=== PATIENT | male | born 1930 | race Caucasian/White ===

== ENCOUNTER 2021-04-19 17:52 | Emergency (ER) | payer MEDICARE, BC ==
[2021-04-19] MEDS ORDERED: Sodium Chloride 0.9% 10 ML Syringe FLUSH PRN (18:05)
[2021-04-19] MEDS ORDERED: Diltiazem 25 MG/5 ML SDV IVPUSH ONE ×2 (18:23→19:30)
--- NOTE | 2021-04-19 19:08 | EDM.PDOC ---
ED HPI GENERAL MEDICAL PROBLEM - General Chief Complaint: Fever Stated Complaint: FEVER Time Seen by Provider: 04/19/21 19:03 Source of Information: Reports: Patient, Family History Limitations: Reports: Altered Mental Status - History of Present Illness INITIAL COMMENTS - FREE TEXT/NARRATIVE: Ed is a 89 yo female brought by care givers due to lethargy,fever and general malaise. He reportedly had a temp of 104 at home. According to the caregiver,he has not been himself since the COVID booster in Mid February,but really got worse tonight. He complains of no chest pain or SOB,though he has a cough. Ed has ah/o DM2,HTN,MDD,Fibromyalgia,RA,Chronic Pancreatitis Headache Pain Score (Numeric/FACES): 5 - Related Data Allergies Allergy/AdvReac Type Severity Reaction Status Date / Time No Known Allergies Allergy Verified 03/07/13 10:27 Home Meds: Home Meds Amylase/Lipase/Protease [Pancrelipase DR 5,000 Units] 1 cap PO TID 03/15/15 [History] Cholecalciferol (Vitamin D3) [Vitamin D3] 2,000 unit PO DAILY 03/15/15 [History] Dextroamphetamine [Dexedrine] 1 cap PO DAILY PRN 03/15/15 [History] Docusate Sodium [Stool Softener] 100 mg PO DAILY 03/15/15 [History] Escitalopram [Lexapro] 20 mg PO DAILY 03/15/15 [History] Folic Acid 1 tab PO DAILY 03/15/15 [History] Gabapentin 600 mg PO QID 03/15/15 [History] Gemfibrozil 600 mg PO BID 03/15/15 [History] Hydroxychloroquine [Plaquenil] 200 mg PO BID 03/15/15 [History] Insulin Aspart [NovoLOG] See Protocol SUBCUT QIDACANDBED 03/15/15 [History] Insulin Glarg,Human.Rec.Analog [Lantus Solostar] 40 unit SUBCUT BEDTIME 03/15/15 [History] Methotrexate Sodium [Methotrexate] 6 tab PO WEEKLY 03/15/15 [History] Omeprazole [Prilosec] 20 mg PO QAM 03/15/15 [History] carvediloL [Coreg] 3.125 tab PO BID 03/15/15 [History] hydrALAZINE [Apresoline] 25 mg PO BID 03/15/15 [History] Acetaminophen/oxyCODONE [Percocet 325-5 MG] 1 tab PO Q4H PRN #40 tablet 03/20/15 [Rx] Past Medical History Other Cardiovascular History: unverified stroke but unsure. 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 Other Musculoskeletal Surgeries/Procedures:: right full and left is partial Social & Family History - Family History Family Medical History: Unobtainable - Tobacco Use Tobacco Use Status *Q: Never Tobacco User - Caffeine Use Caffeine Use: Reports: None - Recreational Drug Use Recreational Drug Use: No - Living Situation & Occupation Living situation: Reports: , with Family Occupation: Retired ED ROS GENERAL - Review of Systems Review Of Systems: Comprehensive ROS is negative, except as noted in HPI. ED EXAM, SEPSIS - Physical Exam Exam: See Below Exam Limited By: No Limitations General Appearance: Lethargic Ears: Normal External Exam Nose: Normal Inspection Throat/Mouth: Normal Inspection Head: Atraumatic Neck: Normal Inspection Respiratory/Chest: No Respiratory Distress, Lungs Clear Cardiovascular: Normal Peripheral Pulses, Regular Rate, Rhythm GI/Abdominal Exam: Normal Bowel Sounds, Soft (Male) Exam: No Hernia Back: Normal Inspection, Full Range of Motion Extremities: Pedal Edema Neurological: Oriented, CN II-XII Intact Psychiatric: Normal Affect, Normal Mood Lymphatic: Bilateral: No Adenopathy #1 Interpretation EKG Date: 04/19/21 Rhythm: A-Fib Benjamin: Normal P-Wave: Absent QRS: Normal ST-T: Normal Comparison: Change From Previous EKG Course - Vital Signs Last Recorded V/S: Last Vital Signs Temp 99.4 F 04/19/21 19:47 Pulse 91 04/19/21 20:37 Resp 18 04/19/21 20:37 BP 107/55 L 04/19/21 20:37 Pulse Ox 95 04/19/21 20:37 - Orders/Labs/Meds Orders: Active Orders 24 hr Category Date Time Status CULTURE BLOOD [BC] Urgent Lab 04/19/21 18:17 Results Labs: Laboratory Tests 04/19/21 04/19/21 04/19/21 Range/Units 18:05 18:17 18:17 WBC 15.7 H (3.2-10.1) x10-3/uL RBC 5.03 (3.90-5.90) x10(6)uL Hgb 14.8 (12.9-17.7) g/dL Hct 45.0 (38.3-50.1) % MCV 89.5 (80.8-98.7) fL MCH 29.5 (27.0-33.3) pg MCHC 33.0 (28.7-35.3) g/dL RDW 14.5 (12.4-15.0) % Plt Count 255 (117-477) x10(3)uL MPV 7.2 (6.7-11.0) fL Add Manual Diff Yes Neutrophils % (Manual) 86 H (46-82) % Band Neutrophils % 2 (0-6) % Lymphocytes % (Manual) 4 L (13-37) % Monocytes % (Manual) 8 (4-12) % Sodium 137 (135-145) mmol/L Potassium 3.8 (3.5-5.3) mmol/L Chloride 100 D (100-110) mmol/L Carbon Dioxide 24 (21-32) mmol/L BUN 24 H (7-18) mg/dL Creatinine 1.1 (0.70-1.30) mg/dL Est Cr Clr Drug Dosing 48.49 mL/min Estimated GFR (MDRD) > 60 (>60) BUN/Creatinine Ratio 21.8 H (9-20) Glucose 133 H (80-116) mg/dL Calcium 9.3 (8.6-10.2) mg/dL Total Bilirubin 0.9 (0.1-1.3) mg/dL AST 14 D (5-25) IU/L ALT 10 L (12-36) U/L Alkaline Phosphatase 73 (56-112) IU/L Troponin I (4.0-60.3) pg/mL NT-Pro-B Natriuret Pep (<=450) pg/mL Total Protein 7.6 (6.0-8.0) g/dL Albumin 3.5 (2.9-4.5) g/dL Globulin 4.1 g/dL Albumin/Globulin Ratio 0.9 Urine Color (YELLOW) Urine Appearance (CLEAR) Urine pH (5.0-6.5) Ur Specific [place] (1.010-1.025) Urine Protein (NEGATIVE) mg/dL Urine Glucose (UA) (NORMAL) mg/dL Urine Ketones (NEGATIVE) mg/dL Urine Occult Blood (NEGATIVE) Urine Nitrite (NEGATIVE) Urine Bilirubin (NEGATIVE) Urine Urobilinogen (NEGATIVE) mg/dL Ur Leukocyte Esterase (NEGATIVE) Urine RBC (0-5) Urine WBC (0-5) Ur Squamous Epith Cells (NS,R,O) Urine Bacteria (NS) SARS-CoV-2 RNA (CHETNA) Negative (NEGATIVE) 04/19/21 04/19/21 04/19/21 Range/Units 18:17 18:17 20:00 WBC (3.2-10.1) x10-3/uL RBC (3.90-5.90) x10(6)uL Hgb (12.9-17.7) g/dL Hct (38.3-50.1) % MCV (80.8-98.7) fL MCH (27.0-33.3) pg MCHC (28.7-35.3) g/dL RDW (12.4-15.0) % Plt Count (117-477) x10(3)uL MPV (6.7-11.0) fL Add Manual Diff Neutrophils % (Manual) (46-82) % Band Neutrophils % (0-6) % Lymphocytes % (Manual) (13-37) % Monocytes % (Manual) (4-12) % Sodium (135-145) mmol/L Potassium (3.5-5.3) mmol/L Chloride (100-110) mmol/L Carbon Dioxide (21-32) mmol/L BUN (7-18) mg/dL Creatinine (0.70-1.30) mg/dL Est Cr Clr Drug Dosing mL/min Estimated GFR (MDRD) (>60) BUN/Creatinine Ratio (9-20) Glucose (80-116) mg/dL Calcium (8.6-10.2) mg/dL Total Bilirubin (0.1-1.3) mg/dL AST (5-25) IU/L ALT (12-36) U/L Alkaline Phosphatase (56-112) IU/L Troponin I 29.6 (4.0-60.3) pg/mL NT-Pro-B Natriuret Pep 2349 H* (<=450) pg/mL Total Protein (6.0-8.0) g/dL Albumin (2.9-4.5) g/dL Globulin g/dL Albumin/Globulin Ratio Urine Color Yellow (YELLOW) Urine Appearance Clear (CLEAR) Urine pH 5.0 (5.0-6.5) Ur Specific [place] 1.020 (1.010-1.025) Urine Protein Negative (NEGATIVE) mg/dL Urine Glucose (UA) >1000 H (NORMAL) mg/dL Urine Ketones 50 H (NEGATIVE) mg/dL Urine Occult Blood Moderate H (NEGATIVE) Urine Nitrite Negative (NEGATIVE) Urine Bilirubin Negative (NEGATIVE) Urine Urobilinogen Normal (NEGATIVE) mg/dL Ur Leukocyte Esterase Negative (NEGATIVE) Urine RBC 0-5 (0-5) Urine WBC 0-5 (0-5) Ur Squamous Epith Cells Few H (NS,R,O) Urine Bacteria Few H (NS) SARS-CoV-2 RNA (CHETNA) (NEGATIVE) Meds: Medications Discontinued Medications Generic Name Dose Route Start Last Admin Trade Name Rocío PRN Reason Stop Dose Admin Ceftriaxone Sodium 2 gm 04/19/21 19:32 04/19/21 19:46 Ceftriaxone 2 Gm Vial IVPUSH 04/19/21 19:33 2 gm ONETIME ONE Administration Digoxin 250 mcg 04/19/21 19:11 04/19/21 19:15 Digoxin 500 Mcg/2 Ml Amp IVPUSH 04/19/21 19:12 250 mcg ONETIME ONE Administration Diltiazem HCl 25 mg 04/19/21 18:23 04/19/21 18:26 Diltiazem 25 Mg/5 Ml Sdv IVPUSH 04/19/21 18:24 25 mg ONETIME ONE Administration Diltiazem HCl 10 mg 04/19/21 19:30 04/19/21 19:45 Diltiazem 25 Mg/5 Ml Sdv IVPUSH 04/19/21 19:31 10 mg ONETIME ONE Administration Sodium Chloride 1,000 mls @ 250 mls/hr 04/19/21 19:30 Normal Saline IV ASDIRECTED JASMINE Labetalol HCl 10 mg 04/19/21 20:20 04/19/21 20:30 Labetalol 20 Mg/4 Ml Syringe IVPUSH 04/19/21 20:21 10 mg ONETIME ONE Administration Protocol Sodium Chloride 10 ml 04/19/21 18:05 04/19/21 18:01 Sodium Chloride 0.9% 10 Ml Syringe FLUSH 10 ml ASDIRECTED PRN Administration Keep Vein Open Departure - Departure Time of Disposition: 19:10 Disposition: DC/Tfer to Acute Hospital 02 Condition: Good Clinical Impression: Benign essential HTN, Pneumonia - Discharge Information Referrals: PCP,Not In Area [Primary Care Provider] - Forms: ED Department Discharge Sepsis Event Note (ED) - Evaluation Sepsis Screening Result: No Definite Risk - Problem List & Annotations (1) Afib SNOMED Code(s): 32821685 Code(s): I48.91 - UNSPECIFIED ATRIAL FIBRILLATION Status: Acute Qualifiers: Atrial fibrillation type: unspecified Qualified Code(s): I48.91 - Unspecified atrial fibrillation (2) Pneumonia SNOMED Code(s): 787984232 Code(s): J18.9 - PNEUMONIA, UNSPECIFIED ORGANISM Status: Acute - Problem List Review Problem List Initiated/Reviewed/Updated: Yes - My Orders Last 24 Hours: My Active Orders 04/19/21 18:17 CULTURE BLOOD [BC] Urgent - Assessment/Plan Last 24 Hours: My Active Orders 04/19/21 18:17 CULTURE BLOOD [BC] Urgent Plan: I gave him Cardizem 25 mg IV,and then 10 mg more. I subsequently gave him 10 mg of Labetalol,and his HR normalized. BNP stable Will transfer him to [facility].
[2021-04-19] MEDS ORDERED: Digoxin 500 MCG/2 ML Amp IVPUSH ONE (19:11)
[2021-04-19] MEDS ORDERED: Sodium Chloride 0.9% 1,000 ML IV SCH (19:30)
[2021-04-19] MEDS ORDERED: cefTRIAXone 2 GM Vial IVPUSH ONE (19:32)
[2021-04-19] MEDS ORDERED: Labetalol 20 MG/4 ML Syringe IVPUSH ONE (20:20)
[2021-04-19 20:38] VITALS: BP 107/55; PULSE 91
== END 2021-04-19 21:45 ==
LOC: FB.ED 17:52
DX: J18.9 Pneumonia, unspecified organism (principal); I10 Essential (primary) hypertension; Z79.899 Other long term (current) drug therapy; Z20.822 Contact with and (suspected) exposure to COVID-19
CPT/HCPCS: 36415; 71045; 80053; 81001; 83880; 84484; 85025; 87040; 93005; 96374; 96375; 96376; 99285; J0696; J1160; J3490; U0002

== ENCOUNTER 2021-04-28 14:48 | Emergency (ER) | payer MEDICARE, BC ==
[2021-04-28] MEDS ORDERED: Sodium Chloride 0.9% 1,000 ML IV SCH ×2 (15:15→16:15)
--- NOTE | 2021-04-28 16:38 | EDM.PDOC ---
ED HPI GENERAL MEDICAL PROBLEM - General Chief Complaint: Chest Pain Stated Complaint: Chest pain Time Seen by Provider: 04/28/21 14:55 Source of Information: Reports: Patient History Limitations: Reports: No Limitations - History of Present Illness INITIAL COMMENTS - FREE TEXT/NARRATIVE: Patient presented to the ED because of chest pain and dizziness. the chest pain started at 0930, over the sternal area,7/10, took 2 nitro which significantly reduced his pain. At about 12 nn chest pain reoccurred and he took 1 more nitro which made him dizzy. There is no nausea, vomiting, dyspnea or diaphoresis. He had a NSTEMI a month ago and angiogram didn't show any blockage, no intervention was done just medical management. - Related Data Allergies Allergy/AdvReac Type Severity Reaction Status Date / Time No Known Allergies Allergy Verified 03/07/13 10:27 Home Meds: Home Meds Cholecalciferol (Vitamin D3) [Vitamin D3] 10,000 unit PO DAILY@1200 03/15/15 [History] Docusate Sodium [Stool Softener] 100 mg PO DAILY PRN 03/15/15 [History] Gabapentin 600 mg PO QID 03/15/15 [History] Gemfibrozil 600 mg PO DAILY 03/15/15 [History] Hydroxychloroquine [Plaquenil] 200 mg PO BIDMEALS 03/15/15 [History] Insulin Aspart [NovoLOG] 6 - 15 units SUBCUT QIDACANDBED 03/15/15 [History] Insulin Glarg,Human.Rec.Analog [Lantus Solostar] 3 units SUBCUT BEDTIME 03/15/15 [History] Methotrexate Sodium [Methotrexate] 5 mg PO TH 03/15/15 [History] Acetaminophen [Tylenol] 975 mg PO Q6H PRN 04/28/21 [History] Apixaban [Eliquis] 5 mg PO BIDMEALS 04/28/21 [History] Aspirin 81 mg PO DAILY 04/28/21 [History] Baclofen 10 mg PO TID 04/28/21 [History] Carboxymethylcellulose Sodium [Artificial Tears] 1 drop EYEBOTH Q4H PRN 04/28/21 [History] DULoxetine [Cymbalta] 30 mg PO DAILY 04/28/21 [History] Empagliflozin [Jardiance] 25 mg PO DAILY 04/28/21 [History] Furosemide [Lasix] 20 mg PO DAILY 04/28/21 [History] Metoprolol Succinate [Toprol XL] 37.5 mg PO DAILY 04/28/21 [History] Nitroglycerin 0.4 mg SL Q5M PRN 04/28/21 [History] Relief Factor Pill Pack (Supplement) 1 pack PO ASDIRECTED PRN 04/28/21 [History] Rosuvastatin [Crestor] 20 mg PO BEDTIME 04/28/21 [History] Tamsulosin HCl [Flomax] 0.4 mg PO BIDMEALS 04/28/21 [History] lisinopriL [Lisinopril] 2.5 mg PO DAILY 04/28/21 [History] metFORMIN HCl [Metformin ER Osmotic] 1,000 mg PO BIDMEALS 04/28/21 [History] Past Medical History Other Cardiovascular History: unverified stroke but unsure. 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 Other Musculoskeletal Surgeries/Procedures:: right full and left is partial Social & Family History - Family History Family Medical History: Unobtainable - Caffeine Use Caffeine Use: Reports: None - Living Situation & Occupation Living situation: Reports: , with Family Occupation: Retired ED ROS GENERAL - Review of Systems Review Of Systems: See Below Constitutional: Reports: No Symptoms HEENT: Reports: No Symptoms Respiratory: Reports: No Symptoms Cardiovascular: Reports: Chest Pain Endocrine: Reports: No Symptoms GI/Abdominal: Reports: No Symptoms : Reports: No Symptoms Musculoskeletal: Reports: No Symptoms Skin: Reports: No Symptoms Neurological: Reports: No Symptoms Psychiatric: Reports: No Symptoms ED EXAM, GENERAL - Physical Exam Exam: See Below Exam Limited By: No Limitations General Appearance: Alert, No Apparent Distress Ears: Normal External Exam, Normal Canal, Hearing Grossly Normal Nose: Normal Inspection, Normal Mucosa, No Blood Throat/Mouth: Normal Inspection, Normal Lips, Normal Teeth, Normal Gums, Normal Oropharynx, Normal Voice Head: Atraumatic, Normocephalic Neck: Normal Inspection, Supple, Non-Tender, Full Range of Motion Respiratory/Chest: No Respiratory Distress, Lungs Clear, Normal Breath Sounds, No Accessory Muscle Use, Chest Non-Tender Cardiovascular: Normal Peripheral Pulses, Regular Rate, Rhythm, No Edema, No Gallop, No JVD, No Murmur, No Rub GI/Abdominal: Normal Bowel Sounds, Soft, Non-Tender, No Organomegaly, No Distention, No Abnormal Bruit, No Mass, Pelvis Stable Back Exam: Normal Inspection, Full Range of Motion Extremities: Normal Inspection, Normal Range of Motion, Non-Tender, No Pedal Edema, Normal Capillary Refill Neurological: Alert, Oriented, CN II-XII Intact, Normal Cognition, Normal Gait, Normal Reflexes, No Motor/Sensory Deficits Psychiatric: Normal Affect #1 Interpretation EKG Date: 04/28/21 Time: 14:54 Rhythm: NSR Rate (Beats/Min): 59 [place]: Normal QRS: LBBB ST-T: Normal QT: Normal VA/PQ Interval: 264 Comparison: No Change EKG Interpretation Comments: NSR LBBB LVH Course - Vital Signs Text/Narrative:: Lab/EKG result was reviewed and discussed with patient He was chest pain free all through out his stay in the ED NS 1 L bolus Last Recorded V/S: Last Vital Signs Temp 36.4 C 04/28/21 14:50 Pulse 60 04/28/21 14:50 Resp 16 04/28/21 14:50 BP 105/51 L 04/28/21 14:50 Pulse Ox 96 04/28/21 14:50 - Orders/Labs/Meds Orders: Active Orders 24 hr Category Date Time Status EKG 12 Lead [EK] Routine Ther 04/28/21 15:07 Ordered Labs: Laboratory Tests 04/28/21 04/28/21 04/28/21 Range/Units 15:20 15:20 15:20 WBC 4.9 (3.2-10.1) x10-3/uL RBC 4.32 (3.90-5.90) x10(6)uL Hgb 12.6 L (12.9-17.7) g/dL Hct 38.1 L (38.3-50.1) % MCV 88.2 (80.8-98.7) fL MCH 29.2 (27.0-33.3) pg MCHC 33.1 (28.7-35.3) g/dL RDW 14.6 (12.4-15.0) % Plt Count 369 (117-477) x10(3)uL MPV 7.0 (6.7-11.0) fL Add Manual Diff Yes Neutrophils % (Manual) 59 (46-82) % Band Neutrophils % 8 H (0-6) % Lymphocytes % (Manual) 24 (13-37) % Monocytes % (Manual) 8 (4-12) % Eosinophils % (Manual) 1 (0-5) % Sodium 139 (135-145) mmol/L Potassium 4.2 (3.5-5.3) mmol/L Chloride 102 (100-110) mmol/L Carbon Dioxide 30 (21-32) mmol/L BUN 25 H (7-18) mg/dL Creatinine 1.7 H (0.70-1.30) mg/dL Est Cr Clr Drug Dosing TNP Estimated GFR (MDRD) 38 L (>60) BUN/Creatinine Ratio 14.7 (9-20) Glucose 210 H (80-116) mg/dL Calcium 8.5 L (8.6-10.2) mg/dL Total Bilirubin 0.5 (0.1-1.3) mg/dL AST 12 D (5-25) IU/L ALT 13 D (12-36) U/L Alkaline Phosphatase 64 (56-112) IU/L Troponin I 24.9 (4.0-60.3) pg/mL Total Protein 6.8 (6.0-8.0) g/dL Albumin 3.2 (2.9-4.5) g/dL Globulin 3.6 g/dL Albumin/Globulin Ratio 0.9 Meds: Medications Discontinued Medications Generic Name Dose Route Start Last Admin Trade Name Freq PRN Reason Stop Dose Admin Sodium Chloride 1,000 mls @ 999 mls/hr 04/28/21 15:15 04/28/21 15:11 Normal Saline IV 999 mls/hr ASDIRECTED JASMINE Administration Sodium Chloride 1,000 mls @ 999 mls/hr 04/28/21 16:15 Normal Saline IV ASDIRECTED JASMINE Departure - Departure Time of Disposition: 17:00 Disposition: Home, Self-Care 01 Condition: Good Clinical Impression: Dehydration, Hypotension - Discharge Information Instructions: Hypotension, [id number], Dehydration, Adult, [id number] Referrals: PCP,Not In Area [Primary Care Provider] - Forms: ED Department Discharge Additional Instructions: Please read discharge instructions on dehydration and low blood pressure Drink fluids Do not take the following medications for 2 days 1.Furosemide 2.Lisinopril 3.Metoprolol Keep your appointment to see your 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
[2021-04-28 17:14] VITALS: BP 105/51; PULSE 60
== END 2021-04-28 16:30 | disposition home or self-care (01) ==
LOC: FB.ED 14:48
DX: I95.9 Hypotension, unspecified (principal); E86.0 Dehydration; Z79.4 Long term (current) use of insulin; Z79.01 Long term (current) use of anticoagulants; Z79.82 Long term (current) use of aspirin; Z79.899 Other long term (current) drug therapy
CPT/HCPCS: 36415; 80053; 84484; 85025; 93005; 99285-25; J7030

== ENCOUNTER 2021-05-07 15:17 | Emergency (ER) | payer MEDICARE, BC ==
--- NOTE | 2021-05-07 15:51 | EDM.PDOC ---
ED HPI GENERAL MEDICAL PROBLEM - General Stated Complaint: CHEST/SHOULDER PAIN Time Seen by Provider: 05/07/21 15:40 Source of Information: Reports: Patient History Limitations: Reports: No Limitations - History of Present Illness INITIAL COMMENTS - FREE TEXT/NARRATIVE: 89-year-old male who apparently had an NSTEMI at the end of March and [place] cardiac catheterization which showed coronary artery disease that was not amenable to any angioplasty or stents. He had a 50% lesion and a 40% lesion and therefore no stents were placed. He apparently improved and was discharged since being discharged she has had almost daily left shoulder and arm pain with some left chest pain. He reports these pains have come and gone and they last for variable periods of time. They have been lasting for up to several hours at a time. They are and aching pain that this seemed to be worse with palpation and with movement in his arm and shoulder he has had no nausea or vomiting associated with this. One week ago, apparently he took several nitroglycerin and he arrived here with relatively low blood pressure with systolic in the 80s. He was given IV normal saline and had asked performed which were all reassuring except a creatinine that was elevated 1.7. History, was normal. His EKG was reportedly unchanged from previous. Since then, he was told that if he had to take more than one sublingual nitroglycerin for his pain, he should come back to the emergency department for evaluation. He states that he has been having pain pretty much every day as I described above but he has just not taken any nitroglycerin for it. He states he taken Tylenol with some relief of his pain but his pain has not gone away completely with this. He has had resolution of his pain but it has gone away on its own. Today, he had pain that was present and he took one sublingual nitroglycerin but the pain did not go away completely and he has persisted with pain now since he p.m. He is currently rating his pain as a 5/10 but it was up to an 8/10 and is worse. There is been no nausea or vomiting. He has felt like he could not get a good breath at times. And he would say he felt somewhat short of air. No fevers or chills. No syncope. There are no other associated signs or symptoms. There are no other modifying factors. 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 Chest Pain Score (Numeric/FACES): 7 - Related Data Allergies Allergy/AdvReac Type Severity Reaction Status Date / Time morphine Allergy Swollen Verified 05/07/21 17:32 Tongue Home Meds: Home Meds Cholecalciferol (Vitamin D3) [Vitamin D3] 10,000 unit PO DAILY@1200 03/15/15 [History] Docusate Sodium [Stool Softener] 100 mg PO DAILY PRN 03/15/15 [History] Gabapentin 600 mg PO QID 03/15/15 [History] Gemfibrozil 600 mg PO DAILY 03/15/15 [History] Hydroxychloroquine [Plaquenil] 200 mg PO BIDMEALS 03/15/15 [History] Insulin Aspart [NovoLOG] 6 - 15 units SUBCUT QIDACANDBED 03/15/15 [History] Insulin Glarg,Human.Rec.Analog [Lantus Solostar] 3 units SUBCUT BEDTIME 03/15/15 [History] Methotrexate Sodium [Methotrexate] 5 mg PO TH 03/15/15 [History] Acetaminophen [Tylenol] 975 mg PO Q6H PRN 04/28/21 [History] Apixaban [Eliquis] 5 mg PO BIDMEALS 04/28/21 [History] Aspirin 81 mg PO DAILY 04/28/21 [History] Baclofen 10 mg PO TID 04/28/21 [History] Carboxymethylcellulose Sodium [Artificial Tears] 1 drop EYEBOTH Q4H PRN 04/28/21 [History] DULoxetine [Cymbalta] 30 mg PO DAILY 04/28/21 [History] Empagliflozin [Jardiance] 25 mg PO DAILY 04/28/21 [History] Furosemide [Lasix] 20 mg PO DAILY 04/28/21 [History] Metoprolol Succinate [Toprol XL] 37.5 mg PO DAILY 04/28/21 [History] Nitroglycerin 0.4 mg SL Q5M PRN 04/28/21 [History] Relief Factor Pill Pack (Supplement) 1 pack PO ASDIRECTED PRN 04/28/21 [History] Rosuvastatin [Crestor] 20 mg PO BEDTIME 04/28/21 [History] Tamsulosin HCl [Flomax] 0.4 mg PO BIDMEALS 04/28/21 [History] lisinopriL [Lisinopril] 2.5 mg PO DAILY 04/28/21 [History] metFORMIN HCl [Metformin ER Osmotic] 1,000 mg PO BIDMEALS 04/28/21 [History] Past Medical History Cardiovascular History: Reports: Afib, CAD, High Cholesterol, Hypertension, ID (Recent NSTEMI) Other Cardiovascular History: unverified stroke but unsure. 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 - Past Surgical History Cardiovascular Surgical History: Reports: Other (See Below) (Cardiac catheterization no stents placed.) GI Surgical History: Reports: Other (See Below) (Exploratory laparotomy for bleeding stomach ulcer) Other Neurological Surgeries/Procedures: spinal surgery to open up space between disks. Musculoskeletal Surgical History: Reports: Knee Replacement (Lateral), Other (See Below) (Implanted TENS unit in the back.) Social & Family History - Tobacco Use Tobacco Use Status *Q: Unknown Ever Used Tobacco (Nonsmoker) - Caffeine Use Caffeine Use: Reports: None - Alcohol Use Alcohol Use History: No - Living Situation & Occupation Living situation: Reports: Occupation: Retired Social History Comment: Lives with his in his own home. They do have 24- hour care. ED ROS GENERAL - Review of Systems Review Of Systems: See Below Constitutional: Denies: Fever, Chills HEENT: Denies: Throat Pain, Throat Swelling Respiratory: Reports: Shortness of Breath (Does feel somewhat short of air.). Denies: Cough Cardiovascular: Reports: Chest Pain. Denies: Palpitations GI/Abdominal: Denies: Nausea, Vomiting : Denies: Dysuria, Hematuria Musculoskeletal: Reports: Shoulder Pain, Arm Pain. Denies: Neck Pain Skin: Denies: Diaphoresis, Rash Neurological: Denies: Confusion, Headache Hematologic/Lymphatic: Reports: Easy Bleeding (Patient is on Eliquis), Easy Bruising ED EXAM, GENERAL - Physical Exam Exam: See Below Exam Limited By: No Limitations General Appearance: Alert, WD/WN, Mild Distress, Other (Toxic appearing. No respiratory distress.) Eye Exam: Bilateral Eye: EOMI, Normal Inspection (Sclera are anicteric) Ears: Normal External Exam, Hearing Grossly Normal Ear Exam: Bilateral Ear: Auricle Normal Nose: Normal Inspection, Normal Mucosa, No Blood Throat/Mouth: Normal Voice, No Airway Compromise, Other (Somewhat dry mucous membranes.) Head: Atraumatic, Normocephalic Neck: Normal Inspection, Supple, Non-Tender, Full Range of Motion Respiratory/Chest: No Respiratory Distress, Lungs Clear, Normal Breath Sounds, No Accessory Muscle Use, Other (Tender to palpation over the left chest, left shoulder and left upper arm.) Cardiovascular: Normal Peripheral Pulses, Regular Rate, Rhythm, No Edema, No Murmur Peripheral Pulses: 2+: Radial (L), Radial (R), Dorsalis Pedis (L), Dorsalis Pedis (R) GI/Abdominal: Normal Bowel Sounds, Soft, Non-Tender, No Mass Back Exam: Normal Inspection. No: CVA Tenderness (R), CVA Tenderness (L) Extremities: Normal Range of Motion, No Pedal Edema, Normal Capillary Refill Neurological: Alert, Oriented, CN II-XII Intact, Normal Cognition, No Motor/Sensory Deficits Psychiatric: Normal Affect Skin Exam: Warm, Dry, Intact, Normal Color, No Rash #1 Interpretation EKG Date: 05/07/21 Time: 15:42 Rhythm: NSR Rate (Beats/Min): 60 [place]: LAD-Left Belding Deviation P-Wave: Present QRS: LBBB ST-T: Other (VH with ST-T changes) QT: Normal Comparison: No Change (No change from EKG performed on 04/28/2021.) Course - Vital Signs Last Recorded V/S: Last Vital Signs Temp 37.1 C 05/07/21 15:17 Pulse 61 05/07/21 18:22 Resp 18 05/07/21 18:22 BP 123/67 05/07/21 18:22 Pulse Ox 94 L 05/07/21 18:22 - Orders/Labs/Meds Orders: Active Orders 24 hr Category Date Time Status Chest 1V Frontal [CR] Stat Exams 05/07/21 15:58 Taken Peripheral IV Insertion Adult [OM.PC] Routine Oth 05/07/21 15:55 Ordered EKG 12 Lead [EK] Routine Ther 05/07/21 15:55 Ordered Labs: Laboratory Tests 05/07/21 05/07/21 05/07/21 Range/Units 16:20 16:20 16:20 WBC 4.4 (3.2-10.1) x10-3/uL RBC 4.53 (3.90-5.90) x10(6)uL Hgb 13.3 (12.9-17.7) g/dL Hct 40.7 (38.3-50.1) % MCV 89.8 (80.8-98.7) fL MCH 29.4 (27.0-33.3) pg MCHC 32.8 (28.7-35.3) g/dL RDW 14.9 (12.4-15.0) % Plt Count 304 (117-477) x10(3)uL MPV 7.3 (6.7-11.0) fL Neut % (Auto) 46.4 (40.3-71.8) % Lymph % (Auto) 32.6 (15.8-45.3) % [place] % (Auto) 19.2 H (5.5-15.2) % Eos % (Auto) 1.2 (0.1-6.8) % Baso % (Auto) 0.6 (0.3-3.8) % Neut # (Auto) 2.0 (1.7-6.9) x10-3/uL Lymph # (Auto) 1.4 (0.5-4.5) x10-3/uL [place] # (Auto) 0.8 (0.0-1.2) x10-3/uL Eos # (Auto) 0.1 (0.0-0.6) x10-3/uL Baso # (Auto) 0.0 (0.0-0.3) x10-3/uL D-Dimer, Quantitative (0.0-0.59) mg/LFEU Sodium 134 L (135-145) mmol/L Potassium 5.0 (3.5-5.3) mmol/L Chloride 100 (100-110) mmol/L Carbon Dioxide 29 (21-32) mmol/L BUN 26 H (7-18) mg/dL Creatinine 1.5 H (0.70-1.30) mg/dL Est Cr Clr Drug Dosing TNP Estimated GFR (MDRD) 44 L (>60) BUN/Creatinine Ratio 17.3 (9-20) Glucose 164 H (80-116) mg/dL Calcium 9.1 (8.6-10.2) mg/dL Magnesium 2.5 (1.8-2.5) mg/dL Total Bilirubin 0.5 (0.1-1.3) mg/dL AST 21 D (5-25) IU/L ALT 10 L D (12-36) U/L Alkaline Phosphatase 70 (56-112) IU/L Troponin I 17.0 (4.0-60.3) pg/mL NT-Pro-B Natriuret Pep (<=450) pg/mL Total Protein 7.5 (6.0-8.0) g/dL Albumin 3.6 (2.9-4.5) g/dL Globulin 3.9 g/dL Albumin/Globulin Ratio 0.9 Lipase 88 (73-393) U/L 05/07/21 05/07/21 Range/Units 16:20 17:05 WBC (3.2-10.1) x10-3/uL RBC (3.90-5.90) x10(6)uL Hgb (12.9-17.7) g/dL Hct (38.3-50.1) % MCV (80.8-98.7) fL MCH (27.0-33.3) pg MCHC (28.7-35.3) g/dL RDW (12.4-15.0) % Plt Count (117-477) x10(3)uL MPV (6.7-11.0) fL Neut % (Auto) (40.3-71.8) % Lymph % (Auto) (15.8-45.3) % [place] % (Auto) (5.5-15.2) % Eos % (Auto) (0.1-6.8) % Baso % (Auto) (0.3-3.8) % Neut # (Auto) (1.7-6.9) x10-3/uL Lymph # (Auto) (0.5-4.5) x10-3/uL [place] # (Auto) (0.0-1.2) x10-3/uL Eos # (Auto) (0.0-0.6) x10-3/uL Baso # (Auto) (0.0-0.3) x10-3/uL D-Dimer, Quantitative 0.36 (0.0-0.59) mg/LFEU Sodium (135-145) mmol/L Potassium (3.5-5.3) mmol/L Chloride (100-110) mmol/L Carbon Dioxide (21-32) mmol/L BUN (7-18) mg/dL Creatinine (0.70-1.30) mg/dL Est Cr Clr Drug Dosing Estimated GFR (MDRD) (>60) BUN/Creatinine Ratio (9-20) Glucose (80-116) mg/dL Calcium (8.6-10.2) mg/dL Magnesium (1.8-2.5) mg/dL Total Bilirubin (0.1-1.3) mg/dL AST (5-25) IU/L ALT (12-36) U/L Alkaline Phosphatase (56-112) IU/L Troponin I (4.0-60.3) pg/mL NT-Pro-B Natriuret Pep 1303 H* (<=450) pg/mL Total Protein (6.0-8.0) g/dL Albumin (2.9-4.5) g/dL Globulin g/dL Albumin/Globulin Ratio Lipase (73-393) U/L Meds: Medications Discontinued Medications Generic Name Dose Route Start Last Admin Trade Name Freq PRN Reason Stop Dose Admin Sodium Chloride 500 mls @ 999 mls/hr 05/07/21 16:58 05/07/21 17:05 Normal Saline IV 05/07/21 17:28 999 mls/hr .BOLUS ONE Administration Sodium Chloride 10 ml 05/07/21 15:55 Sodium Chloride 0.9% 10 Ml Syringe FLUSH ASDIRECTED PRN Keep Vein Open - Radiology Interpretation Free Text/Narrative:: Portable chest x-ray showed no acute disease by my read. - Re-Assessments/Exams Free Text/Narrative Re-Assessment/Exam: 05/07/21 17:00: White blood cell count is 4.4. Hemoglobin is 13.3. Platelet count is normal. Sodium is 134. Potassium is 5.0. Bicarbonate was 29. BUN is 26 and creatinine is 1.5. This compares to 1.7 last week. Glucose is 169. LFTs are normal. A lipase was normal. Eye sensitivity troponin was normal. A proBNP was 1303. The patient is receiving normal saline 500 mL bolus IV. I have also ordered a d-dimer. His EKG was reassuring and unchanged from previous. His troponin which a 5 hour post-onset of pain troponin was normal as well. This would essentially rule out any ID. 05/07/21 18:10: The patient's d-dimer was 0.36. He has received a 500 mL IV bolus of normal saline and he tells me he feels much improved. His symptoms seem to have abated after he received the IV normal saline bolus. He did have some elevation in his creatinine and BUN and I suspect that dehydration could be contributing to this. Within normal d-dimer I feel that pulmonary emboli has been essentially ruled out. I am unsure why the patient is having the chest pain, left arm and left shoulder pain. It does not appear to be related to a ca rdiac etiology at this point. I discussed all this with the patient and with the patient's son. I answered their questions. I have advised the patient increase his fluid intake and is supposedly following up with either his line tester or his primary provider this coming week and I have urged him to keep that appointment. Precautions and reasons to return to the emergency department were discussed with the patient while he was in the emergency department and were detailed in the patient's discharge instructions. Departure - Departure Time of Disposition: 18:25 Disposition: Home, Self-Care 01 Condition: Good Clinical Impression: Dehydration Chest pain Qualifiers: Chest pain type: unspecified Qualified Code(s): R07.9 - Chest pain, unspecified Left shoulder pain Qualifiers: Chronicity: unspecified Qualified Code(s): M25.512 - Pain in left shoulder Osteoarthritis Qualifiers: Osteoarthritis location: multiple joints Osteoarthritis type: unspecified Qualified Code(s): M15.9 - Polyosteoarthritis, unspecified Instructions: Nonspecific Chest Pain, Adult, [id number], What You Need to Know About Osteoarthritis, Dehydration, Elderly, [id number], Joint Pain, Easy -to-Read Referrals: Arcadio Zavala, [Primary Care Provider] - Forms: ED Department Discharge Additional Instructions: Your blood tests were all reassuring. You did appear to be somewhat dehydrated. Your EKG showed no definite heart attack pattern and was in a normal sinus rhythm. It was unchanged from an EKG performed on 04/28/2021. Your heart enzyme test was normal and with your pain ongoing as long as it has been, I feel this rules out any heart attack and it makes it unlikely that the pain that you are having is related to your heart. A screening test for blood clots was normal and this makes it very unlikely that you would have any blood clots in your lungs causing your symptoms. He did seem to improve with some IV fluids and I would suggest that you increase your fluid intake on a day-to-day basis. This could have some on your pain. I think that arthritis may also be causing some of your shoulder and arm pain well. You should continue treatment as present now. You need to follow-up with your primary provider or with your line tester this coming week for recheck. Back to the emergency department for her weakness, worse breathing, worsening chest pain or any other concerning signs or symptoms. Sepsis Event Note (ED) - Focused Exam Vital Signs: Vital Signs Temp Pulse Resp BP Pulse Ox 05/07/21 18:22 61 18 123/67 94 L 05/07/21 15:17 37.1 C 61 18 108/49 L 96 - My Orders Last 24 Hours: My Active Orders 05/07/21 15:55 Peripheral IV Insertion Adult [OM.PC] Routine EKG 12 Lead [EK] Routine 05/07/21 15:58 Chest 1V Frontal [CR] Stat - Assessment/Plan Last 24 Hours: My Active Orders 05/07/21 15:55 Peripheral IV Insertion Adult [OM.PC] Routine EKG 12 Lead [EK] Routine 05/07/21 15:58 Chest 1V Frontal [CR] Stat
[2021-05-07] MEDS ORDERED: Sodium Chloride 0.9% 10 ML Syringe FLUSH PRN (15:55)
[2021-05-07 15:58] VITALS: PULSE 61
[2021-05-07] MEDS ORDERED: Sodium Chloride 0.9% 500 ML IV ONE (16:58)
[2021-05-07 21:09] VITALS: BP 123/67
--- NOTE | 2021-05-09 12:59 | CR ---
INDICATION: Chest pain. CHEST, ONE VIEW: AP portable upright view of the chest, 05/07/21, was compared with 04/19/21, and revealed the heart to be within normal limits in size. The aorta is mildly tortuous with calcification in the arch. No definite active infiltrate or effusion was identified. 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 IMPRESSION: 1. No definite acute process. 2. ASD aorta. 3. Colonic interposition. MTDD
== END 2021-05-07 18:45 | disposition home or self-care (01) ==
LOC: FB.ED 15:17
DX: R07.9 Chest pain, unspecified (principal); M25.512 Pain in left shoulder; M15.9 Polyosteoarthritis, unspecified; E86.0 Dehydration; I48.91 Unspecified atrial fibrillation; I25.10 Atherosclerotic heart disease of native coronary artery without angina pectoris; E78.00 Pure hypercholesterolemia, unspecified; I10 Essential (primary) hypertension; I25.2 Old myocardial infarction; E11.9 Type 2 diabetes mellitus without complications; Z88.5 Allergy status to narcotic agent; Z79.82 Long term (current) use of aspirin; Z79.01 Long term (current) use of anticoagulants; Z79.899 Other long term (current) drug therapy; Z79.4 Long term (current) use of insulin
CPT/HCPCS: 36415; 71045; 80053; 83690; 83735; 83880; 84484; 85025; 85379; 93005; 99285; J7040

== ENCOUNTER 2021-11-09 08:05 | Day surgery (SDC) | payer MEDICARE, BC ==
[~2021-11-09 08:05] MED LIST: Lactated Ringers 1,000 ML IV SCH; Sodium Chloride 0.9% 10 ML Syringe FLUSH PRN
[2021-11-09] MEDS ORDERED: Propofol 200 MG/20 ML SDV IV ONE (08:06)
[2021-11-09] MEDS ORDERED: Glycopyrrolate 0.2 MG/ML 5 ML MDV IV ONE (08:06)
[2021-11-09] MEDS ORDERED: Lidocaine 2% 100 MG/5 ML Syringe IVPUSH ONE (08:06)
[2021-11-09 15:07] VITALS: BP 147/85; PULSE 83
== END 2021-11-09 12:10 | disposition home or self-care (01) ==
LOC: FB.SDS 08:05
PROVIDERS: ATTEND Surgery
DX: D12.2 Benign neoplasm of ascending colon (principal); K29.80 Duodenitis without bleeding; K29.50 Unspecified chronic gastritis without bleeding; K31.89 Other diseases of stomach and duodenum; K59.09 Other constipation; D64.9 Anemia, unspecified; I10 Essential (primary) hypertension; I48.91 Unspecified atrial fibrillation; G47.30 Sleep apnea, unspecified; F32.A Depression, unspecified; M79.7 Fibromyalgia; E11.9 Type 2 diabetes mellitus without complications; Z90.49 Acquired absence of other specified parts of digestive tract; Z98.890 Other specified postprocedural states; Z79.4 Long term (current) use of insulin; Z79.84 Long term (current) use of oral hypoglycemic drugs; Z79.899 Other long term (current) drug therapy; Z86.73 Personal history of transient ischemic attack (TIA), and cerebral infarction without residual deficits; Z87.891 Personal history of nicotine dependence
CPT/HCPCS: 43239; 45385; 88305; 88342; J2704; J3490; J7120; 00813-QZ